=== PATIENT | male | born 1990 | race Caucasian/White ===

== ENCOUNTER 2022-02-28 02:15 | Emergency (ER) | payer SELFPAY ==
[~2022-02-28] VITALS: Ht 182.9 cm; Wt 108.9 kg
[2022-02-28 02:19] VITALS: BP 147/97
--- NOTE | 2022-02-28 02:25 | NUR ---
Dr. Mendoza examining patient.
[2022-02-28 02:40] VITALS: BP 147/97
--- NOTE | 2022-02-28 02:40 | NUR ---
Patient D/C to custody.
== END 2022-02-28 02:40 ==
LOC: MED 02:15
DX: Z02.89 Encounter for other administrative examinations (principal)
CPT/HCPCS: 99283